=== PATIENT | female | born 1925 | race Caucasian/White ===

== ENCOUNTER 2016-09-27 19:04 | Emergency (ER) | payer OTHER, MEDICAID ==
[2016-09-27 19:12] VITALS: BP 114/77; BMI 28.2
--- NOTE | 2016-09-27 20:42 | DR.GENAD ---
HPI - PCP Primary Care Physician: FLORIAN - Complaint/Symptoms Chief Complaint:: SKIN TEARS - Source History Provided: Patient - Mode of Arrival Mode of Arrival: Ambulatory - Timing Onset of Chief Complaint: 09/27/16 PMH - PMH Past Medical History: Yes Past Medical History: COPD Past Surgical History: Yes Surgical History: Ortho Surgery Past Surgical History Comment: SURGERY ON BACK (CEMENT) HIP REPLACEMENT - Family History History of Family Medical Conditions: No - Social History Does any household member use tobacco: No Alcohol Use: None Do you use any recreational Drugs:: No Lives With: Family Lives Where: Home - infectious screening In the last 2 months have you had wt loss of >10#?: NO Have you had fever, night sweats or hemotysis?: No Have you traveled outside the country in the last 6 months?: No Isolation: Standard PE - Vital Signs Vitals: Temperature 98.2 F Pulse Rate 97 Respiratory Rate 16 Blood Pressure 114/77 O2 Sat by Pulse Oximetry 96 - Diagnosis Discharge Problem: Noninfected skin tear of left lower extremity Qualifiers: Encounter type: initial encounter Qualified Code(s): S81.812A - Laceration without foreign body, left lower leg, initial encounter Tear of skin of multiple sites of lower extremity Qualifiers: Encounter type: initial encounter Laterality: right Qualified Code(s): S81.811A - Laceration without foreign body, right lower leg, initial encounter - Discharge Plan Condition: Stable - Follow ups/Referrals Follow ups/Referrals: MIREYA DU [Primary Care Provider] - 3 days - Instructions Instructions: Skin Tear Care, [id number]
== END 2016-09-27 20:40 | disposition home or self-care (01) ==
LOC: ER 19:04
DX: S81.812A Laceration without foreign body, left lower leg, initial encounter (principal); S81.811A Laceration without foreign body, right lower leg, initial encounter; Y33.XXXA Other specified events, undetermined intent, initial encounter; Y92.9 Unspecified place or not applicable
CPT/HCPCS: 99282